=== PATIENT | female | born 1985 | race Caucasian/White ===

== ENCOUNTER 2016-05-10 16:09 | Emergency (ER) | END 2016-05-10 16:56 | disposition home or self-care (01) | DX: R21 Rash and other nonspecific skin eruption (principal) ==

== ENCOUNTER 2016-06-04 15:01 | Emergency (ER) | payer OTHER ==
[~2016-06-04] VITALS: Wt 75.0 kg
[~2016-06-04 15:01] MED LIST: BEN25 PO; FAMO-18 PO; PRED20TA PO
[2016-06-04] MEDS ORDERED: BACTDS PO (15:25)
[2016-06-04] MEDS ORDERED: CEPH-443 PO (15:25)
--- NOTE | 2016-06-04 15:33 | ERD ---
ER Documentation Chief Complaint Date/Time DATE: 06/04/16 TIME: 15:29 Chief Complaint R THIGH AREA ABSCESS FROM A SPIDER BITE. HPI This is a 30-year-old female presents to the ER with an abscess to the posterior right thigh that started 2 days ago. Patient states that have been from a spider bite. Area has gotten more painful and more swollen. She denies any fevers or chills. She denies any drainage from the area. 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 ROS 12 point review of systems was done, all negative except per HPI.. Medications Home Meds Active Scripts Sulfamethoxazole-Trimethoprim* (Bactrim* DS) 800-160 Mg Tab, 1 TAB PO BID for 7 Days, TAB Prov:FRACISCO ROBERTS 06/04/16 Cephalexin* (Keflex*) 500 Mg Capsule, 500 MG PO QID for 7 Days, CAP Prov:FRACISCO ROBERTS C 06/04/16 Diphenhydramine Hcl* (Benadryl*) 25 Mg Cap, 25 MG PO Q6, #30 CAP Prov:SALINA PEREZ PA-C 05/10/16 Famotidine* (Pepcid*) 20 Mg Tablet, 20 MG PO BID for 7 Days, #20 TAB Prov:SALINA PEREZ PA-C 05/10/16 Prednisone* (Prednisone*) 20 Mg Tab, 40 MG PO DAILY for 5 Days, TAB Prov:SALINA PEREZ PA-C 05/10/16 PMhx/Soc History of Surgery: No Anesthesia Reaction: No Hx Neurological Disorder: No Hx Respiratory Disorders: No Hx Cardiac Disorders: No Hx Psychiatric Problems: No Hx Miscellaneous Medical Probl: No Hx Alcohol Use: Yes Hx Substance Use: Yes (Methamphetamine) Hx Tobacco Use: No Physical Exam Vitals Vital Signs Date Time Temp Pulse Resp B/P Pulse Ox O2 Delivery O2 Flow Rate FiO2 06/04/16 15:13 98.6 98 20 129/75 98 Physical Exam GENERAL: The patient is well developed and appropriate for usual state of health , in no apparent distress. HEENT: Atraumatic. CHEST: Clear to auscultation bilaterally. There are no rales, wheezes or rhonchi. HEART: Regular rate and rhythm. No murmurs, clicks, rubs or gallops. EXTREMITIES: Full range of motion. Grossly neurovascularly intact. NEURO: Alert and oriented. SKIN: There is a 2 centimeter by 2 cm abscess to the posterior right thigh that is indurated. No drainage 16 no fluctuance. No surrounding erythema. Tender to palpation. Procedures/MDM This is a 30-year-old female presents to the ER with severe posterior thigh. At this time abscess is not ready to be incised and drained at that is indurated. She however will be sent home with Bactrim and Keflex. Patient will also be sent home with a short course of [place] for pain. Patient is afebrile and well- appearing. Suspicion for cellulitis, deep space infection, myositis, osteomyelitis low. At this is likely formed secondary to drug use, I do not believe that this is a spider bite. Patient needs to follow-up with her primary care doctor within 1-2 days or return to ER sooner symptoms worsen. My medical decision making [place] with the patient she understands and agrees with plan. Departure Diagnosis: Primary Impression: Abscess Condition: Stable Patient Instructions: Abscess, Antiobiotic Treatment Only Additional Instructions: Call your primary care doctor TOMORROW for an appointment during the next 1-2 days.See the doctor sooner or return here if your condition worsens before your appointment time. FRACISCO ROBERTS Jun 04, 2016 15:32
== END 2016-06-04 15:28 | disposition home or self-care (01) ==
LOC: E/R 15:01
DX: L02.415 Cutaneous abscess of right lower limb (principal)
CPT/HCPCS: 99284